=== PATIENT | male | born 1955 | race Caucasian/White ===

== ENCOUNTER 2023-08-27 09:52 | Outpatient (AMB) | payer OTHER, SELFPAY ==
--- NOTE | 2023-08-27 09:57 | A.OFFVIS_ITS ---
Intake Intake Visit Reasons: Recurent UTI Intake Note: New Patient presents for initial visit for recurrent uti Urology Medications: none Blood Thinner: none PVR: 66ml's Radiologic Therapist Required: Yes Accompanied by: Self / Same As Patient Allergies No Known Allergies [No Known Allergies*] Allergy (Unverified 08/27/23 10:28) HPI HPI Comments History of Present Illness Details Magno is a very pleasant 68-year-old male patient of . He has a past medical history of type 2 diabetes, kidney disease, sleep apnea, neuropathy, obesity, hyperlipidemia, hypertension, dermatitis, and colitis. He presents to the office today as a new patient for recurrent urinary tract infections. 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 He reports recommendations were made for Urology follow-up for further assessment evaluation. He reports prior to initiation of Jardiance he had no urological issues or concerns. He reports at times he continues with foul- smelling urine he otherwise denies urinary urgency, urinary frequency, incontinence, nocturia, hematuria, dysuria, changes to urinary stream, flank pain, fever, and or chills. He is happy with his current voiding parameters. In office urinalysis results reviewed with the patient today. PVR 0 mL. [facility]. He reports his last PSA was less than 1.0. He otherwise offers no other issues or concerns at this time. [facility] Medical History Type 2 diabetes mellitus with diabetic chronic kidney disease Sleep apnea Neuropathy Pain in unspecified hip Pain in rectum Other specified hearing loss, unspecified ear Obesity, unspecified Nontoxic single thyroid nodule Microscopic hematuria Impaired fasting glucose Hyperlipidemia Essential (primary) hypertension Dermatitis Colitis Review of Systems Const Reports as per HPI Eyes Reports no additional complaints ENT Reports no additional complaints Card Reports as per HPI Resp Reports as per HPI GI Reports as per HPI Reports as per HPI Musc Reports as per HPI Neuro Reports no additional complaints Psych Reports no additional complaints Endo Reports as per HPI Ernesto/Lymph Reports no additional complaints Aller/Immun Reports no additional complaints Physical Exam Const General: cooperative, healthy appearing, comfortable, no acute distress, well developed, alert and awake Nutritional Appearance: overweight Orientation/consciousness: patient oriented x3 HEENT Head: Yes normal to inspection, Yes normocephalic and Yes atraumatic Ears: hearing grossly normal bilaterally Eyes General: appearance normal, both eyes and all related structures Neck Neck: Yes normal visual inspection and Yes trachea midline Chest Chest palpation & inspection: normal inspection of the chest Resp Effort & Inspection: normal respiratory effort and able to speak in complete sentences Cardio Rate: regular rate GI Inspection: Yes normal to inspection General: Yes no CVA tenderness Back/Spine/Pelvis Back: no CVA tenderness Skin General skin exam: no rashes or lesions noted Neuro General: patient oriented x3 Extrem General: Yes normal to inspection Psych Appearance: grossly normal and well kempt Mental Status: mental status grossly normal Speech and movement: Normal speech and movement present and Clear speech present Affect: normal affect Attitude: cooperative Thought process: Normal thought process present Thought content: Normal thought content present Insight: Fair insight present (Psych) Judgement: Fair judgement present (Psych) Office Procedures Post Void Residual Post Residual Void Post Void Residual (PVR): 66 [id number] Void Residual by ultrasound Results AMB Urinalysis, Automated UA Leukoctes 0 Tanner/uL Last Edit by [facility] on 08/27/23 10:13 UA Nitrite Negative Last Edit by [facility] on 08/27/23 10:13 UA Urobilinogen 0.2 mg/dL Last Edit by [facility] on 08/27/23 10:13 UA Protein 30 mg/dL Last Edit by [facility] on 08/27/23 10:13 UA pH 5.5 Last Edit by [facility] on 08/27/23 10:13 UA Blood 0 Stef/uL Last Edit by [facility] on 08/27/23 10:13 UA Specific [place] 1.020 Last Edit by [facility] on 08/27/23 10:13 UA Ketone Negative Last Edit by [facility] on 08/27/23 10:13 UA Bilirubin 0 mg/dL Last Edit by [facility] on 08/27/23 10:13 UA Glucose 0 mg/dL Last Edit by [facility] on 08/27/23 10:13 Results Reviewed Results Reviewed: Laboratory Last Values Urine pH (Auto) 5.5 08/27/23 10:01 Specific [place] (Auto) 1.020 08/27/23 10:01 Urine Protein (Auto) 30 mg/dL 08/27/23 10:01 Glucose (UA)(Auto) 0 mg/dL 08/27/23 10:01 Urine Ketones (Auto) Negative 08/27/23 10:01 Urine Blood (Auto) 0 Stef/uL 08/27/23 10:01 Urine Nitrite (Auto) Negative 08/27/23 10:01 Urine Bilirubin (Auto) 0 mg/dL 08/27/23 10:01 Urine Urobilinogen (Auto) 0.2 mg/dL 08/27/23 10:01 Leukocyte Esterase (Auto) 0 Tanner/uL 08/27/23 10:01 Assessment & Plan Assessment & Plan (1) Recurrent UTI: Code(s): N39.0 - Urinary tract infection, site not specified (2) Foul smelling urine: Code(s): R82.90 - Unspecified abnormal findings in urine Plan In office urinalysis results reviewed with the patient today; as noted above. PVR 0 mL. Discussed at length potential causes of recurrent urinary tract infections. Discussed possible near future in office cystoscopy for further assessment evaluation. Will obtain retroperitoneal ultrasound for further assessment evaluation. Patient reports to be happy with current voiding parameters. Discussed bladder triggers/irritants. Discussed, educated, and stressed the importance of drinking water daily. Discussed importance of managing diabetes for improvement lower urinary tract symptoms as well as overall health and well-being. Follow-up in 3 months with imaging to be completed prior; or sooner with any issues, concerns, and or questions. Orders: Orders US retroperitoneal comp Today N39.0 - Urinary tract infection, site not specified AMB Urinalysis Automated Today Z13.9 - Encounter for screening, unspecified AMB Post Void Residual by ultrasound Today Z13.9 - Encounter for screening, unspecified Patient Instructions: The patient had an opportunity to ask questions regarding the treatment plan. All questions were answered. Physical exam, labs, and imaging were discussed and reviewed in detail. As well as risks, benefits, and discussion of treatment choices. No major barriers to understanding were identified. The patient expressed understanding and agreement with the above treatment plan. The patient was made aware they should contact our office by phone for worsening of their current condition, the appearance of new symptoms, or with any questions or concerns. Compliance is encouraged with any medications and follow up testing that is ordered. It is a privilege to be allowed the opportunity to participate in? your urological care.? Again, if you have any questions or concerns If you have any questions or concerns please do not hesitate to contact me. The office is [phone]. This note is constructed using voice recognition software. While every effort has been made to ensure accuracy public works director errors may have been included. Yours sincerely, TIEN Perdomo Coding Level of Care Code New Pt Level 3 (02506) Diagnoses Recurrent UTI N39.0 Foul smelling urine R82.90 CPT Codes Post Residual Void - PVR CPT Code: 13933-[id number] Void Residual by ultrasound ([id number])
== END 2023-08-27 10:31 | disposition home or self-care (01) ==
PROVIDERS: PCP Family Medicine; Referring Provider Family Medicine; Visit Provider Nurse Practitioner Family
DX: N39.0 Urinary tract infection, site not specified (principal); R82.90 Unspecified abnormal findings in urine; Z13.9 Encounter for screening, unspecified
CPT/HCPCS: 99203

== ENCOUNTER → 2023-08-27 09:52 | Outpatient (BNVA) | payer OTHER, SELFPAY | PROVIDERS: PCP Family Medicine; Visit Provider Nurse Practitioner Family | DX: N39.0 Urinary tract infection, site not specified (principal); R82.90 Unspecified abnormal findings in urine | CPT/HCPCS: 51798; 81003; 99202 ==

== ENCOUNTER 2023-11-23 09:49 | Outpatient (REF) | payer OTHER, SELFPAY ==
--- NOTE | ~2023-11-23 | US_ITS ---
EXAMINATION: US RETROPERITONEAL COMPLETE (RENAL) CLINICAL INFORMATION: Urinary tract infection, site not specified. COMPARISON: None available. TECHNIQUE: Real-time imaging of the kidneys and bladder. FINDINGS: RIGHT KIDNEY: 12.2 x 6.5 x 5.5 cm (SAG x AP x TRV). The kidney is normal in size, contour, and echogenicity. Renal cortical thickness is normal. No calculi or focal parenchymal lesions. No hydronephrosis. LEFT KIDNEY: 12.9 x 5.5 x 4.9 cm (SAG x AP x TRV). The kidney is normal in size, contour, and echogenicity. Renal cortical thickness is normal. No calculi or focal parenchymal lesions. No hydronephrosis. BLADDER: Well distended and normal. Left ureteral jet is demonstrated; right is not. Prevoid bladder volume is 147 mL. Postvoid bladder volume is 65.1 mL. ADDITIONAL FINDINGS: The prostate is mildly enlarged with a volume of 31.5 mL. US/US retroperitoneal comp IMPRESSION: 1. Normal appearance of the kidneys. 2. Moderate post void residual. 3. Mild enlargement of the prostate.
== END 2023-11-23 09:50 | disposition home or self-care (01) ==
LOC: HO.US 09:49
PROVIDERS: PCP Internal Medicine; Visit Provider Nurse Practitioner Family
DX: N39.0 Urinary tract infection, site not specified (principal)
CPT/HCPCS: 76770

== ENCOUNTER 2023-11-26 09:27 | Outpatient (AMB) | payer OTHER, SELFPAY ==
--- NOTE | 2023-11-26 09:25 | A.OFFVIS_ITS ---
Intake Visit Reasons: /US(pending 11/23/23) Intake Note: Patient presents for follow up visit for recurrent uti Urology Medications: none Blood Thinner: none Maintenance Foreman Required: No Accompanied by: Self / Same As Patient Allergies No Known Allergies [No Known Allergies*] Allergy (Unverified 11/26/23 09:46) Medication List - Last Reconciled 11/26/23 by TIEN Perdomo amlodipine 5 mg PO DAILY atorvastatin 80 mg PO BEDTIME clobetasol 0.05% 1 appl topical DAILY PRN semaglutide 0.5 mg subcut QWEEK urea 10% 1 appl topical BID HPI Comments Details: Magno is a very pleasant 68-year-old male patient of . He has a past medical history of type 2 diabetes, kidney disease, sleep apnea, neuropathy, obesity, hyperlipidemia, hypertension, dermatitis, and colitis. He is being followed up on today via telehealth. Of note, patient was seen approximately 2 months ago at which time a retroperitoneal ultrasound was ordered for further assessment evaluation. These results were reviewed with the patient today. Bilateral kidneys with no calculi, lesions, and or hydronephrosis. Pre void bladder volume is approximately 150 mL. Postvoid bladder volume is approximately 65 mL. The prostate is mildly enlarged with a volume of 32 mL He continues to report UTI like symptoms. He reports having followed up with PCP at the [facility] and having recent urinalysis that noted negative nitrates, negative leukocytes, and microscopic hematuria. He reads me these results during today's video telehealth from his portal through the [facility]. discussed at length potential causes for lower urinary tract symptoms patient is experiencing. Discussed a flash of microscopic hematuria and glucosuria in relation to lower urinary tract symptoms. He reports noting ongoing issues with urinary frequency, nocturia, and at times foul-smelling urine. He otherwise denies incontinence, gross hematuria, dysuria, changes to urinary stream, flank pain, fever, and or chills. He reports having most recent PSA blood work with his PCP earlier this year that noted a PSA that was less than 1.0. He otherwise offers no other issues or concerns at this time. [facility] Medical History Type 2 diabetes mellitus with diabetic chronic kidney disease Sleep apnea Neuropathy Pain in unspecified hip Pain in rectum Other specified hearing loss, unspecified ear Obesity, unspecified Nontoxic single thyroid nodule Microscopic hematuria Impaired fasting glucose Hyperlipidemia Essential (primary) hypertension Dermatitis Colitis Review of Systems Const Reports as per [facility] Eyes Reports no additional complaints ENT Reports no additional complaints Card Reports as per [facility] Resp Reports as per [facility] GI Reports as per [facility] Reports as per [facility] Musc Reports as per HPI Neuro Reports no additional complaints Psych Reports no additional complaints Endo Reports as per HPI Ernesto/Lymph Reports no additional complaints Aller/Immun Reports no additional complaints Physical Exam Const General: cooperative, healthy appearing, comfortable, no acute distress, well developed and alert Orientation/consciousness: patient oriented x3 Resp Effort & Inspection: normal respiratory effort and able to speak in complete sentences Neuro General: patient oriented x3 Psych Appearance: grossly normal and well kempt Mental Status: mental status grossly normal Speech and movement: Clear speech present Affect: normal affect Attitude: cooperative Thought process: Normal thought process present Thought content: Normal thought content present Insight: Fair insight present (Psych) Judgement: Fair judgement present (Psych) Telehealth Telehealth Telehealth Platform: [employer] Location of provider rendering services: practice address Location of patient: address on file Patient Identification confirmed using: Name, : Yes Telehealth method: video Patient verbally consented to treatment: Yes Patient verbally consented to billing insurance company: Yes Patient informed of any privacy concerns related to visit: Yes Minutes spent on Phone/Video with Pt.: 20 Results Reviewed Results Reviewed: Date of Service: 11/23/23 EXAMINATION: US RETROPERITONEAL COMPLETE (RENAL) Real-time imaging of the kidneys and bladder. FINDINGS: RIGHT KIDNEY: 12.2 x 6.5 x 5.5 cm (SAG x AP x TRV). The kidney is normal in size, contour, and echogenicity. Renal cortical thickness is normal. No calculi or focal parenchymal lesions. No hydronephrosis. LEFT KIDNEY: 12.9 x 5.5 x 4.9 cm (SAG x AP x TRV). The kidney is normal in size, contour, and echogenicity. Renal cortical thickness is normal. No calculi or focal parenchymal lesions. No hydronephrosis. BLADDER: Well distended and normal. Left ureteral jet is demonstrated; right is not. Prevoid bladder volume is 147 mL. Postvoid bladder volume is 65.1 mL. ADDITIONAL FINDINGS: The prostate is mildly enlarged with a volume of 31.5 mL. IMPRESSION: 1. Normal appearance of the kidneys. 2. Moderate post void residual. 3. Mild enlargement of the prostate. Assessment & Plan Assessment & Plan (1) Foul smelling urine: Code(s): R82.90 - Unspecified abnormal findings in urine Category: Medical (2) Recurrent UTI: Code(s): N39.0 - Urinary tract infection, site not specified Category: Medical (3) Lower urinary tract symptoms: Code(s): R39.9 - Unspecified symptoms and signs involving the genitourinary system Category: Medical (4) Incomplete bladder emptying: Code(s): R33.9 - Retention of urine, unspecified Category: Medical (5) Renal cyst: Code(s): N28.1 - Cyst of kidney, acquired Category: Medical Plan Recent retroperitoneal ultrasound results reviewed with the patient today; as noted above. Discussed at length potential causes of incomplete bladder emptying and lower urinary tract symptoms patient is experiencing. Discussed, educated, and stressed the importance of managing diabetes for improvement lower urinary tract symptoms as well as overall health and well- being. Start Flomax as discussed and prescribed. Patient with recent urinalysis at [facility]; discussed affects of glucosuria and microscopic hematuria in relation to lower urinary tract symptoms. Discussed, educated, and stressed the importance of adequate hydration for overall health and well-being. Discussed if lower urinary tract symptoms continue to call office and or seek medical treatment. Discussed possible near future microgen and or in office cystoscopy for further assessment evaluation. Follow-up in 1-3 months with PVR; or sooner with any issues, concerns, and or questions. Medications: New tamsulosin 0.4 mg PO BEDTIME 30 caps 3RF 30 days R35.1 - Nocturia, N40.1 - Benign prostatic hyperplasia with lower urinary tract symptoms Patient Instructions: The patient had an opportunity to ask questions regarding the treatment plan. All questions were answered. Physical exam, labs, and imaging were discussed and reviewed in detail. As well as risks, benefits, and discussion of treatment choices. No major barriers to understanding were identified. The patient expressed understanding and agreement with the above treatment plan. The patient was made aware they should contact our office by phone for worsening of their current condition, the appearance of new symptoms, or with any questions or concerns. Compliance is encouraged with any medications and follow up testing that is ordered. It is a privilege to be allowed the opportunity to participate in? your urological care.? Again, if you have any questions or concerns If you have any questions or concerns please do not hesitate to contact me. The office is [phone]. This note is constructed using voice recognition software. While every effort has been made to ensure accuracy vice president supply chain errors may have been included. Yours sincerely, TIEN Perdomo Coding Level of Care Code Tele Est Pt Level 4 (73359) Diagnoses Foul smelling urine R82.90 Recurrent UTI N39.0 Lower urinary tract symptoms R39.9 Incomplete bladder emptying R33.9 Renal cyst N28.1
== END 2023-11-26 10:06 | disposition home or self-care (01) ==
LOC: HO.HUSH 09:27
PROVIDERS: PCP Internal Medicine; Visit Provider Nurse Practitioner Family
DX: R82.90 Unspecified abnormal findings in urine (principal); N39.0 Urinary tract infection, site not specified; R39.9 Unspecified symptoms and signs involving the genitourinary system; R33.9 Retention of urine, unspecified; N28.1 Cyst of kidney, acquired
CPT/HCPCS: 99214

== ENCOUNTER → 2023-11-26 09:27 | Outpatient (BNVA) | payer OTHER, SELFPAY | PROVIDERS: PCP Internal Medicine; Visit Provider Nurse Practitioner Family ==

== ENCOUNTER 2024-01-02 10:15 | Outpatient (REF) | payer OTHER, SELFPAY ==
[2024-01-02 12:02] LABS: Appearance Urine Cloudy; Color Urine Yellow; Glucose Urine UA Negative (Negative); Leukocyte Esterase Urine Trace (Negative); Nitrite Urine Negative (Negative); PH 5.5 (5.0-9.0); Specific Gravity - Urine 1.015 (1.005-1.025); UMIC TRIGGER UA YES; Urine Blood Large (3+) (Negative); Urine Ketones Negative (Negative); Urine Protein 300 (3+) mg/dL (Neg-Trace)
[2024-01-02 12:37] LABS: Bacteria Urine None Seen (None Seen); RBC Urine >20 /HPF (0-2); WBC Urine 21-50 /HPF (0-5)
== END 2024-01-02 10:16 | disposition home or self-care (01) ==
LOC: HO.LAB 10:15
PROVIDERS: PCP Internal Medicine; Visit Provider Nurse Practitioner Family
DX: R33.9 Retention of urine, unspecified (principal); R39.9 Unspecified symptoms and signs involving the genitourinary system; R82.90 Unspecified abnormal findings in urine; N39.0 Urinary tract infection, site not specified
CPT/HCPCS: 81001; 87086

== ENCOUNTER 2024-01-11 08:55 | Outpatient (REF) | payer OTHER, SELFPAY ==
[2024-01-11 10:43] LABS: Appearance Urine Clear; Color Urine Yellow; Glucose Urine UA Negative (Negative); Leukocyte Esterase Urine Trace (Negative); Nitrite Urine Negative (Negative); PH 5.5 (5.0-9.0); UMIC TRIGGER UA YES; Urine Blood Large (3+) (Negative); Urine Ketones Negative (Negative); Urine Protein 300 (3+) mg/dL (Neg-Trace)
[2024-01-11 10:48] LABS: Bacteria Urine None Seen (None Seen); Hyaline Casts Urine 0-2 /LPF (0-2); RBC Urine >20 /HPF (0-2); Squamous Epithelial Cell Urine 0-2 /HPF (0-2)
== END 2024-01-11 08:56 | disposition home or self-care (01) ==
LOC: HO.HMGCLDS 08:55
PROVIDERS: PCP Internal Medicine; Visit Provider Nurse Practitioner Family
DX: R33.9 Retention of urine, unspecified (principal); R39.9 Unspecified symptoms and signs involving the genitourinary system; N39.0 Urinary tract infection, site not specified; R82.90 Unspecified abnormal findings in urine
CPT/HCPCS: 81001; 87086